=== PATIENT | male | born 1965 | race African-American/Black ===

== ENCOUNTER → 2020-05-15 | Outpatient (CLI) | payer BC ==
[~2020-05-15] VITALS: Ht 180.3 cm; Wt 74.8 kg
[~2020-05-15] MED LIST: BACTRIM DS TAB1 EAC1 PO; BUPROPION HCL100 MG; BUPROPION HCL150 M1 PO; IBUPROFEN 800800 M1 PO; LEVITRA20 MG PO; MELOXICAM15 MG PO; MELOXICAM7.5 MG; NORCO 5-325 TA1 EAC1 PO; ONDANSETRON ODT8 MG PO; PERCOCET 10-321 EAC1 PO; SENNA PO; VALTREX1000 MG PO; ZANAFLEX4 M1 PO
[2020-05-15 09:30] VITALS: BP 153/98
--- NOTE | 2020-05-15 09:31 | NUR ---
Pain Clinic Assessment: 1. History of Osteoarthritis: Not Applicable History of Rheumatoid Arthritis: Not Applicable 2. Height: 5 ft. 11 in. 180.3 cm. Weight: 165.0 lb. oz. 74.844 kg. Patient's BMI: 23.0 3. Vital Signs: BP: 153/98 Pulse: 78 Resp: 14 Temp: 02 Sat: 98 ECG Mon: 4. Pain Intensity: 7 5. Fall Risk: Dizziness: N Needs help standing or walking: N Fallen in the last 3 months: N Fall risk comments: 6. Patient on Blood Thinner: None 7. History of Hypertension: N 8. Opioid Therapy greater than 6 weeks: Y Opiate Contract Signed: 9. Risk Assessment Tool Provided: 10. Functional Assessment Tool: 11. Recreational Drug Use: Unknown Drug Type: Tobacco Use: Current Every Day Smoker Tobacco Type: Cigarettes Amount or Packs/day: 1/2 PACK How Many Years: Alcohol Use: Yes Frequency: Special Occasions Quant:
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
== END ==
LOC: PAIN 06:42
PROVIDERS: ATTEND Anesthesiology Pain Medicine
DX: M54.2 Cervicalgia (principal); M25.511 Pain in right shoulder

== ENCOUNTER → 2020-06-18 | Outpatient (CLI) | payer BC, OTHER ==
[~2020-06-18] VITALS: Ht 180.3 cm; Wt 73.9 kg
[~2020-06-18] MED LIST changes: +NEURONTIN 300M300 M2 PO
--- NOTE | ~2020-06-18 | HPC ---
[facility] [place] [address] PAIN MANAGEMENT CONSULTATION Name: CHELSEY SHELL [id number] Admission: 06/18/20 Attend Phys: Rohit Arrieta DO Discharge: Date of : 67 Report #: [id number] THIS REPORT FOR: cc: Vane Tatum MD,Rohit Mirza MD, DO ~ DOC #: [id number] cc: MD Rohit Agosto, DATE OF SERVICE: 06/18/2020 CHIEF COMPLAINT: Neck pain, bilateral lower extremity pain and right shoulder pain. HISTORY OF PRESENT ILLNESS: As you know, the patient is a 54-year-old male seen in consultation per the request of Dr. Vane Tatum in regard to chronic neck pain, upper extremity pain with paresthesias believed to be due to cervical radiculopathy. The patient was seen in consultation and diagnosed with mild arthritic changes of the cervical spine and right shoulder pain. We attempted conservative treatment as there were no significant findings in the patient's imaging study or in his physical exam that would be concerning to require aggressive treatment options. He has been utilizing [id number]-[id number] medications, rest, relaxation and stretching exercises with good benefit. He returns today in followup visit stating he has begun to slowly improve and physical therapy has been quite beneficial. He is placing current pain score 3/10. He returns to make a possible adjustments in medication management to help ongoing symptoms. He is unable to return to almost all activities of daily living since our last visit. ALLERGIES: No known drug allergies. CURRENT MEDICATIONS: Ondansetron 8 mg 3 times a day as needed, Percocet 10/325 q.8 hours p.r.n. for pain, tizanidine 4 mg t.i.d., Levitra 20 mg once a day, Senokot-S 1 tab per day, ibuprofen 800 mg t.i.d. SOCIAL HISTORY: The patient reports no changes in his social history. He smokes half-pack of tobacco per day. Denies IV or illicit drug use. Occasional alcohol beverage. He is working, unaccompanied today. IMAGING: No new imaging available. PHYSICAL EXAMINATION: VITAL SIGNS: Blood pressure 152/86, pulse 102, respiratory rate 16 and unlabored. The patient is 98% on room air. Height 5 feet 11 inches tall, weight 163 pounds, BMI calculated 22.7. GENERAL: Well-developed, well-nourished, well-hydrated 54-[place] [address] PAIN MANAGEMENT CONSULTATION Name: CHELSEY SHELL Room #: REG [facility].#: [id number] Admission: 06/18/20 Attend Phys: Rohit Arrieta DO Discharge: Date of : 67 Report #: [id number] appearing stated age, no acute distress. Pain is rated around 3/10. HEENT: Normocephalic, atraumatic. Pupils are round. Extraocular muscles are intact. Speech is fluent for patient. He is wearing a mask in compliance with COVID-19 regulations. EXTREMITIES: Show no clubbing, no cyanosis, no edema. MUSCULOSKELETAL: Spurling's test remains negative bilaterally. Cervical provocation testing is once again met with increasing pain. This is mainly with rotation and lateral flexion. There is palpatory tenderness over the anterior and posterior portions of the right shoulder once again consistent with impingement syndrome. ASSESSMENT: 1. Chronic neck pain due to mild facet arthropathy. 2. Mild arthritic changes of the cervical spine. 3. Right shoulder pain. PLAN: 1. The patient returns today in followup visit with pain level of only 3/10. He states he is doing fairly well with current treatment. He wishes an adjustments and medication management to address any residual pain. The patient is currently taking high dose opioid medication, does not need an adjustments in that therapy. We recommend he continue nonsteroidal anti-inflammatories, into this we will add a medication in hopes of improving pain further. We have chosen to provide the patient with gabapentin as a treatment adjunct. We are hopeful he will see good improvement in symptoms with this therapy. 2. The patient will start gabapentin 300 mg dose 1 tab p.o. at bedtime for 3 nights. If no improvement in symptoms, no side effects, then increase to 2 tabs p.o. at bedtime or 600 mg tablets. If no improvement in symptoms, no side effects, then increase to 900 mg p.o. at bedtime. If again no improvement in symptoms, no side effects, then increase to 1 tab in the morning and 3 tabs at night. He was given #120 tablets. The patient was advised anytime during this titration, he notes improvement in symptoms stabilize at that dose, no further escalation. Prescriptions sent via e-scribe to local pharmacy. 3. We will see the patient back in followup visit on an as needed basis. We recommended continue physical therapy and begin to return to his normal activities. We also discussed with him today our recommendations to discontinue smoking. Smoking has a direct link to development and maintenance of chronic pain through the descending pain pathway in the nicotinic receptor activity. We recommend he discontinue this activity. 4. The patient continues to experience right shoulder pain. We recommend he follow up with orthopedics in regard to possible surgical options to address this issue and further evaluation. I believe continue with physical therapy is an excellent idea at this point, but he may ultimately need a surgical consultation. We will defer to the primary team for making that determination. 5. We will see the patient back in followup visit on an as needed basis. We are please to see he is doing well with conservative treatment. We will see him [address] [address] PAIN MANAGEMENT CONSULTATION Name: CHELSEY SHELL Room #: REG [facility] Camacho#: [id number] Admission: 06/18/20 Attend Phys: Rohit Arrieta DO Discharge: Date of : 67 Report #: [id number] back when necessary. Rohit Arrieta DO JEJ/SHANE By: 0729 [id number] Rohit Arrieta DO /nt
[2020-06-18 10:41] VITALS: BP 152/86
--- NOTE | 2020-06-18 10:49 | NUR ---
Pain Clinic Assessment: 1. History of Osteoarthritis: Not Applicable History of Rheumatoid Arthritis: Not Applicable 2. Height: 5 ft. 11 in. 180.3 cm. Weight: 163.0 lb. oz. 73.936 kg. Patient's BMI: 22.7 3. Vital Signs: BP: 152/86 Pulse: 102 Resp: 16 Temp: 02 Sat: 98 ECG Mon: 4. Pain Intensity: 3 5. Fall Risk: Dizziness: N Needs help standing or walking: N Fallen in the last 3 months: N Fall risk comments: 6. Patient on Blood Thinner: None 7. History of Hypertension: N 8. Opioid Therapy greater than 6 weeks: Y Opiate Contract Signed: 9. Risk Assessment Tool Provided: low-0 10. Functional Assessment Tool: 11. Recreational Drug Use: Unknown Drug Type: Tobacco Use: Current Every Day Smoker Tobacco Type: Cigarettes Amount or Packs/day: 1/2 pack How Many Years: Alcohol Use: Yes Frequency: Special Occasions Quant: 1
== END ==
LOC: PAIN 07:00
PROVIDERS: ATTEND Anesthesiology Pain Medicine
DX: M54.2 Cervicalgia (principal); M79.604 Pain in right leg; M79.605 Pain in left leg; M25.511 Pain in right shoulder